=== PATIENT | female | born 1960 | race Caucasian/White ===

== ENCOUNTER → 2024-03-27 03:55 | Outpatient (CLI) | payer MEDICARE, SELFPAY ==
--- NOTE | 2024-03-27 08:00 | DI.CTLCSR_ITS ---
Exam(s) CT CHEST LUNG CANCER SCREEN EXAM: CT CHEST LUNG CANCER SCREEN CLINICAL HISTORY: Screening for lung cancer,FORMER SMOKER, Z87.891 TECHNIQUE: Imaging Protocol: Axial computed tomography images with coronal and sagittal reformatted images were created and reviewed. Low dose screening protocol. COMPARISON: No exams were available for comparison FINDINGS: Tracheobronchial tree: No bronchiectasis or mucus plugging. Mediastinum and Deyanira: No dominant adenopathy or fluid collection. Pulmonary parenchyma: No consolidation or dominant measurable mass. Minimal emphysematous changes. Lung Nodules: None. Pleura: No effusion. No pneumothorax. Heart: The heart is not dilated. No coronary artery calcifications are seen. Aorta: Thoracic aorta non-dilated. Upper abdomen: Unremarkable. Bones: Unremarkable for age. Soft Tissues: Bilateral breast implants. Surgical clips in both axilla IMPRESSION: No suspicious pulmonary nodules. Lung RADS Cat 1 - Negative: No nodules and definitely benign nodules Lung-RADS 1.0 CATEGORIES: Category 0 - Prior chest CT exam(s) being located for comparison. Category 1 - Annual screening in 12 months. No nodules or definitely benign nodules. Category 2 - Annual screening in 12 months. Benign appearance. Nodules with low likelihood of becomin g active cancer. Category 3 - 6-month follow-up. Probably benign. Short-term follow-up suggested. Nodules with low lik elihood of becoming active cancer. Category 4A - 3-month follow-up and CT/PET if >8 mm in size. Suspicious finding. Findings which requi re additional testing. Category 4B - Findings which require additional testing and tissue sampling. Category 4X - Category 3 or 4 nodules with additional features or imaging findings that increases the suspicion of malignancy. Modifier S- Potentially clinically significant findings (non lung cancer) RADIATION DOSE DELIVERED: 72.66mGy.cm Total DLP DATA REPOSITORY: All CT scans at this facility are submitted to the National Radiology Data Registry (NRDR) Dose Index Registry (DIR) with the [employer] (ACR). RADIATION OPTIMIZATION: All CT scans at this facility use at least one of these dose optimization te chniques: automated exposure control; mA and/or kV adjustment per patient size (includes targeted exa ms where dose is matched to clinical indication); or iterative reconstruction.
== END ==
PROVIDERS: PCP Student in an Organized Health Care Education/Training Program; Visit Provider Student in an Organized Health Care Education/Training Program
DX: Z12.2 Encounter for screening for malignant neoplasm of respiratory organs (principal); Z87.891 Personal history of nicotine dependence
CPT/HCPCS: 71271

== ENCOUNTER → 2024-06-28 14:52 | Outpatient (BNVA) | payer MEDICARE, SELFPAY | PROVIDERS: PCP Student in an Organized Health Care Education/Training Program; Referring Provider Student in an Organized Health Care Education/Training Program; Visit Provider Physical Therapy Assistant | DX: Z12.11 Encounter for screening for malignant neoplasm of colon (principal); Z86.010 Personal history of colon polyps ==

== ENCOUNTER 2024-06-28 16:11 | Outpatient (CLI) | payer MEDICARE, SELFPAY ==
[2024-06-28 16:01] LABS: HCT 37.6 % (36.0-46.0); HGB 12.8 g/dL (11.2-15.7); MCH 28.3 pg (27.0-33.0); MCV 83 fL (80-95); Platelet Count 318 10^3/uL (130-400); RBC 4.52 10^6/uL (3.93-5.22); RDW-SD 39.4 fL; WBC 7.56 10^3/uL (4.4-10.8)
--- OUTSIDE RECORDS SUMMARY | 2024-06-28 16:16 | XMS_ITS | Clinical Summary ---
[place] [address] Care Team Providers Care Parts Finisher Name Role Phone Nikki Greco DO Primary Care Provider [phone]- [phone] Encounters Date Type Department Care Team Description 04/17/2024 Transcribe Orders eD Incoming Referrals [phone] Nikki Greco DO Acquired absence of bilateral breasts and nipples; Malignant neoplasm of female breast, unspecified estrogen receptor status, unspecified laterality, unspecified site of breast 04/05/2024 Telephone [place]ology [place] [id number] Arabella Hardwick 04/02/2024 Transcribe Orders eD Incoming Referrals [phone] Nikki Greco DO 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 from Last 3 Months Social History Tobacco Use Types Packs/Day Years Used Date Smoking Tobacco: Never Assessed Sex and Gender Information Value Date Recorded Sex Assigned at Not on file Gender Identity Not on file Sexual Orientation Not on file Plan of Treatment Health Maintenance Due Date Last Done Comments CT Colonography 1959 Colonoscopy 1960 Colorectal Cancer Screening 1960 FIT DNA 1959 FIT 1960 Sigmoidoscopy (10 year) with FIT yearly 1959 Sigmoidoscopy 1960 HIV screen 1977 Hepatitis C Screening 1977 Tdap adult 1978 Tetanus vaccine 1978 HPV test 1989 PAP Smear 1989 Breast Cancer Share Decision Needed 1999 Breast Cancer screening 1999 Zoster vaccine (1 of 2) 2009 Advance Directive 2014 Covid-19 Vaccine ( season) 2023 Bone Density Scan 2024 Pneumoccocal Vaccine: 65+ (1 of 1 - PCV) 2024 Influenza (Flu) vaccine (1 o f 1 - Influenza standard series) 07/08/2024 Care Teams Parts Finisher Relationship Specialty Start Date End Date Nikki Greco DO [address] [place] [address] PCP - General Family Medicine 04/02/24
--- OUTSIDE RECORDS SUMMARY | 2024-06-28 16:16 | XMS_ITS | Encounter Summary ---
[place] [address] Care Team Providers Care Rotary Lithographic Press Operator Name Role Phone Nikki Greco DO Primary Care Provider [phone]- [phone] Reason for Referral * Consultation (Priority 1) - Authorized Specialty Diagnoses / Procedures Referred By Danielle tierney Referred To Contact Hematology and Oncology Diagnoses Acquired absence of bilateral breasts and nipples Malignant neoplasm of female breast, unspecified estrogen receptor status, unspecified laterality, unspecified site of breast Silvina Silverman DO [address] [facility] [place] [address] [facility] [address] [place] [address] Referral ID Status Reason Start Date Expiration Date Visits Requested Visits Authorized [id number] Authorized Consult, Test & Treat PCP Updated and/or Approved 04/05/2024 04/05/2025 6 6 Encounter Details Date Type Department Care Team (Latest Contact Info) Description 04/17/2024 Transcribe Orders eDH Incoming Referrals [phone] Nikki Greco DO [address] [place], [place] [id number] Acquired absence of bilateral breasts and nipples; Malignant neoplasm of female breast, unspecified estrogen receptor status, unspecified laterality, unspecified site of breast Social History Tobacco Use Types Packs/Day Years Used Date Smoking Tobacco: Never Assessed Sex and Gender Information Value Date Recorded Sex Assigned at Not on file Gender Identity Not on file Sexual Orientation Not on file documented as of this encounter Plan of Treatment Scheduled Referrals Name Type Priority Associated Diagnoses Orde r Schedule Referral to Genetics Outpatient Referral Routine Acquired absence of bilateral breasts and nipples Malignant neoplasm of female breast, unspecified estrogen receptor status, unspecified laterality, unspecified site of breast Ordered: 04/17/2024 documented as of this encounter Visit Diagnoses Diagnosis Acquired absence of bilateral breasts and nipples Acquired absence of breast and nipple Malignant neoplasm of female breast, unspecified estrogen receptor status, unspecified laterality, unspecified site of breast documented in this encounter Care Teams Rotary Lithographic Press Operator Relationship Specialty Start Date End Date Nikki Greco DO [address] [facility] [address] PCP - General Family Medicine 04/02/24 documented as of this encounter
--- OUTSIDE RECORDS SUMMARY | 2024-06-28 16:16 | XMS_ITS | Encounter Summary ---
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 Nikki Greco DO [address] [place] [address] [facility] [address] [place] [address] Referral ID Status Reason Start Date Expiration Date Visits Requested Visits Authorized [id number] Authorized Consult, Test & Treat PCP Updated and/or Approved 03/20/2024 03/20/2025 6 6 Encounter Details Date Type Department Care Team (Latest Contact Info) Description 04/02/2024 Transcribe Orders eDH Incoming Referrals [phone] Nikki Greco DO [address] [place], [place] [id number] 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 Social History Tobacco Use Types Packs/Day Years Used Date Smoking Tobacco: Never Assessed Sex and Gender Information Value Date Recorded Sex Assigned at Not on file Gender Identity Not on file Sexual Orientation Not on file documented as of this encounter Plan of Treatment Scheduled Referrals Name Type Priority Associated Diagnoses Order Schedule Referral to Hematology and Oncology Outpatient Referral Routine 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
--- OUTSIDE RECORDS SUMMARY | 2024-06-28 16:16 | XMS_ITS | Encounter Summary ---
Author Organization [facility] [place] [address] Care Team Providers Care Loading And Unloading Supervisor Name Role Phone Nikki Greco DO Primary Care Provider [phone]- [phone] Encounter Details Date Type Department Care Team (Late st Contact Info) Description 04/05/2024 Telephone Hematology [place] [phone] Arabella Hardwick Social History Tobacco Use Types Packs/Day Years Used Date Smoking Tobacco: Never Assessed Sex and Gender Information Value Date Recorded Sex Assigned at Not on file Gender Identity Not on file Sexual Orientation Not on file documented as of this encounter Miscellaneous Notes * Telephone Encounter - Arabella Hardwick - 04/05/2024 10:17 AM EDT Vangie Craven 1960 Please fax all office notes and reports pertaining to Breast Cancer to the Comprehensive Breast Program at [facility]. Your patient is going to be treated here for Breast Cancer. If questions, please call us at [phone]. Please Include: -Breast Imaging reports -Chemo flow sheets -Office visit notes -Operative notes -Pathology reports -Radiation completion summary Thank you Breast Cancer Team documented in this encounter Plan of Treatment Not on file documented as of this encounter Visit Diagnoses Not on filedocumented in this encounter Care Teams Loading And Unloading Supervisor Relationship Specialty Start Date End Date Nikki Greco DO [address] [place] [address] PCP - General Family Medicine 04/02/24 documented as of this encounter
[2024-06-28 17:08] LABS: ALT 36 U/L (14-59); AST 23 U/L (15-37); Albumin 3.8 g/dL (3.4-5.0); Alkaline Phosphatase 94 U/L (46-116); Anion Gap 8.7 mmol/L (3-11); BUN 18 mg/dL (7-18); Bilirubin, Total 0.52 mg/dL (0.2-1.0); CO2 27.3 mmol/L (21.0-32.0); CREATININE 0.8 mg/dL (0.55-1.02); Calculated LDL 122 mg/dL (<100); Chloride 104 mmol/L (98-107); Cholesterol 264 mg/dL (<200); Estimated GFR 81.72 (mL/min/1.73m2); Glucose 103 mg/dL (74-106); HDL Cholesterol 109 mg/dL (40-60); Potassium 3.8 mmol/L (3.5-5.1); Sodium 140 mmol/L (136-145); TSH (W/Ref FT4) 1.76 uIU/mL (0.36-3.74); Total Protein 6.9 g/dL (6.4-8.2); Triglyceride 166 mg/dL (<150); Vitamin D 25 Total 50.8 ng/mL (30-100)
== END 2024-06-28 16:12 | disposition home or self-care (01) ==
LOC: LBO 16:14
PROVIDERS: PCP Student in an Organized Health Care Education/Training Program; Visit Provider Student in an Organized Health Care Education/Training Program
DX: Z87.891 Personal history of nicotine dependence (principal); Z90.13 Acquired absence of bilateral breasts and nipples; Z98.890 Other specified postprocedural states; Z12.39 Encounter for other screening for malignant neoplasm of breast; Z00.00 Encounter for general adult medical examination without abnormal findings; Z13.220 Encounter for screening for lipoid disorders; K90.9 Intestinal malabsorption, unspecified
CPT/HCPCS: 36415; 80053; 80061; 82306; 85027; 84443

== ENCOUNTER 2024-07-13 09:57 | Day surgery (SDC) | payer MEDICARE, SELFPAY ==
--- NOTE | 2024-07-12 20:10 | W.PM.DSUDISC ---
Date of service: 07/13/24 Time of Service: 13:53 Discharge Plan Disposition Patient Disposition: Home Condition: Good Discharge Details Reason For Visit: screening colonoscopy Attending Provider: Ramses Chen Primary Care Provider: Nikki Greco Home Meds and New Rx's Prescriptions: Continued alprazolam 0.5 mg tablet 0.5 mg PO BID citalopram 20 mg tablet 20 mg PO DAILY Qty: 90 3RF multivitamin Tablet 1 tab PO DAILY Discontinued bisacodyl [Dulcolax (bisacodyl)] 5 mg tablet,delayed release (DR/EC) 5 mg PO ONCE Qty: 4 0RF Rx Instructions: Take per colonoscopy instructions provided by ordering providers office polyethylene glycol 3350 17 gram/dose powder 17 g PO ONCE Qty: 238 0RF Rx Instructions: Take per colonoscopy instructions provided by ordering providers office Discharge Instructions Instructions: Colon polyps Additional Instructions: Vangie, we were able to complete your colonoscopy today without any difficulty. I did find to remove 3 polyps. All were quite small, and none of them appear worrisome to the naked eye. These will all be sent off for testing, and once I know the nature of these polyps, the office will be in touch with recommendations for the timing of your next colonoscopy. If you have any questions in the meantime, please do not hesitate to call or ask at any point 1. If tolerated, consume a soft, low fiber diet for 1-2 days. [address] not drive, drink alcohol, operate machinery, make critical decisions, or do activities that require coordination or balance for 24 hours. 3. Because air was put into your colon during the procedure, expelling air from your rectum (passing gas or farting) is normal. 4. You may not have a bowel movement for 1-3 days because of the colonoscopy prep. This is normal. 5. Go directly to the emergency room if you notice any of the following: Develop chills (warm to touch), or if you have a thermometer and your temperature is above 101 Difficulty breathing or difficultly swallowing Persistent vomiting Severe abdominal pain, other than gas cramps Severe chest pain Black, tarry stools Any bleeding ? exceeding one tablespoon 6. Call your physician if the site where your intravenous was started becomes red, swollen, painful, and warm to touch. 7. Your physician has reviewed your pre-procedure medications. Please continue to take those medications as previously ordered. You will be given specific information/education regarding any changes to your medications before leaving. Stand Alone Forms: Anesthesia Discharge Inst., Caroline Alcocer (DSU) Activity:: Activity as Tolerated Diet:: As Tolerated Discharge Orders Discharge Orders: Discharge Order (Routine); Ordered 07/12/24 Ordered By: Ramses Chen DS: Diagnosis Discharge Diagnosis (1) Encounter for screening colonoscopy: Status: Acute Asessment and Plan: Follow-up on polypectomy results
--- NOTE | 2024-07-12 20:12 | W.COLOREPORT ---
Date of service: 07/13/24 Time of Service: 13:54 Colonoscopy Report Date of procedure: 07/13/24 Pre-op diagnosis general: screening colonscopy Post-op diagnosis procedure note: other (Colon polyps) Procedure: colonoscopy with polypectomy Surgeon: Ramses Chen Anesthesia Type: General:No Airway Estimated blood loss (mL): 5 Pathology: other (0.25 cm flat polyp at 35 cm, 0.25 cm flat polyp at 25 cm, 0.25 cm flat polyp at 15 cm) Complications: None Disposition: same day Indications: Vangie is a 64 year old woman with a history of colon polyps who needs her next screening colonoscopy Prep: Miralax/Dulcolax Procedure Start Time: 12:50 Procedure End Time: 13:13 Retraction Time: 16 Findings: 0.25 cm flat polyp at 35 cm, 0.25 cm flat polyp at 25 cm, 0.25 cm flat polyp at 15 cm Procedure Description: After the induction of monitored anesthetic care, and with the patient in left lateral decubitus position, I began by performing an external anorectal exam.? Perineum and skin were normal, as was the anal verge.? There was no evidence of external hemorrhoids.? Next, I performed a digital rectal exam.? I did not appreciate any abnormal findings.? Next, I advanced a colonoscope into the rectal vault.? I performed retroflexion.? This appeared normal.? Using insufflation, I then advanced the colonoscope beyond the rectal folds and into the sigmoid colon before advancing towards the cecum.? The quality of the prep was excellent.? The scope was noted to be in the cecum by identification of the ileocecal valve and appendiceal orifice.? I then began withdrawing the colonoscope using repeated irrigation as necessary for full evaluation of the colonic mucosa. Around 35 cm from the anal verge I identified a 0.25 cm polyp. ?It appeared flat in character. ?I was able to remove this with a cold forcep polypectomy. ?I examined the site, and there was minimal bleeding. ?Once this was completed, I continued to withdraw the scope and examine the remainder of the colonic mucosa. Similarly, I found flat polyps at 25 cm, and 15 cm. Each of these was less than 0.25 cm. I removed both of these with cold forceps without any difficulty. Once the scope was withdrawn to the level of the rectum, great care was taken to examine portions of the rectal folds.? Finally, the scope was withdrawn and the patient was brought to the same-day surgery recovery unit as the anesthetic wore off. ?The findings and instructions were shared with the patient prior to discharge. Washington Bowel Prep Washington Bowel Prep Right Colon: 2 Left Colon: 3 Transverse Colon: 3 Total Score: 8
[2024-07-13 10:10] VITALS: BP 107/68; PULSE 65; RESP 16; TEMP 36.4; O2SAT 99
[2024-07-13] MEDS: Lactated Ringers 1,000 ML 80 ML IV (10:35)
--- NOTE | 2024-07-13 12:20 | W.ANESPRE ---
General Info Date of Service Date Performed: 07/13/24 Height: 5 ft 5 in Weight: 66.4 kg Body Mass Index (BMI): 24.3 Surgical Procedure: Operation Date: 07/13/24 11:35 Proposed Procedure Side Surgeon p Colonoscopy Ramses Chen MD Actual Procedure Side Surgeon p Colonoscopy Ramses Chen MD Pre-Op Diagnosis Post-Op Diagnosis HX OF COLON POLYPS Meds Allergies and Home Medications Allergies Allergy/AdvReac Type Severity Reaction Status Date / Time azithromycin (From Zithromax) Allergy Severe Hives Verified 07/13/24 10:07 nitrofurantoin Allergy Severe Hives Verified 07/13/24 10:07 erythromycin Allergy Unknown Other (See Uncoded 07/13/24 10:07 Comment) Home Medication ?Medication ?Instructions ?Recorded alprazolam 0.5 mg tablet 0.5 mg PO BID 02/22/24 citalopram 20 mg tablet 20 mg PO DAILY #90 tabs 05/09/24 multivitamin 1 tab PO DAILY 07/11/24 Current Visit Medications: Current Medications Generic Name Dose Route Start Last Admin Trade Name Freq PRN Reason Stop Dose Admin Ringer's Solution 1,000 mls @ 80 mls/hr 07/13/24 06:00 07/13/24 10:35 IV 08/11/24 23:59 80 mls/hr INFUSION MYCHAL Administration IV Miscellaneous Supplies 1 each 07/13/24 06:00 Iv Access IV 08/11/24 23:59 DIRECTED MYCHAL Sodium Chloride 0 ml 07/13/24 06:00 Normal Saline Flush 10 Ml Syr IV 08/11/24 23:59 PRN PRN Sodium Chloride 0 ml 07/13/24 06:00 Normal Saline 10 Ml Vial IJ 08/11/24 23:59 DIRECTED PRN Sterile Water 0 ml 07/13/24 06:00 Water,Injection,Sterile 10 Ml Vial IJ 08/11/24 23:59 DIRECTED PRN PFSH Active Problems Active Problems: Problem Status Onset Code Encounter for screening colonoscopy Acute Z12.11 Insomnia Acute G47.00 Social anxiety disorder Acute F40.10 Well woman exam with routine gynecological exam Acute Z01.419 Osteoporosis Chronic M81.0 Anxiety disorder, unspecified Acute F41.9 Pure hypercholesterolemia Acute E78.00 Medical History Medical History Malignant neoplasm of breast Surgical History Surgical History Hx of lumpectomy Return Breast Cancer 2022 [facility] center Dr. Araujo. History of bilateral mastectomy breast cancer 2004 [facility] medical Dr. Dao Tobacco Smoking/Tobacco Use Status: Former Tobacco Use Smokeless tobacco user: other Alcohol Alcohol Intake: former Year quit: 2014 Substance Use Substance use: Never Substance use type: does not use Prental History History 2 Para 1 Hx # Term Pregnancies 1 Multiple births Hx # Pregnancies Ectopic pregnancies AB induced Hx Number of Living Children 1 AB spontaneous Vital Signs and Lab Results Vital Signs Most Recent Vital Signs in EMR: Most Recent Vital Signs Temp Pulse Resp BP Pulse Ox 36.4 C L 65 16 107/68 99 07/13/24 10:10 07/13/24 10:10 07/13/24 10:10 07/13/24 10:10 07/13/24 10:10 Lab Results Blood Type / Crossmatch: No Data to Display Complete Blood Count: White Blood Count 7.56 10^3/uL (4.4-10.8) 06/28/24 15:58 Red Blood Count 4.52 10^6/uL (3.93-5.22) 06/28/24 15:58 Hemoglobin 12.8 g/dL (11.2-15.7) 06/28/24 15:58 Hematocrit 37.6 % (36.0-46.0) 06/28/24 15:58 Platelet Count 318 10^3/uL (130-400) 06/28/24 15:58 Complete Metabolic Panel: Sodium 140 mmol/L (136-145) 06/28/24 15:58 Potassium 3.8 mmol/L (3.5-5.1) 06/28/24 15:58 Chloride 104 mmol/L (98-107) 06/28/24 15:58 Carbon Dioxide 27.3 mmol/L (21.0-32.0) 06/28/24 15:58 BUN 18 mg/dL (7-18) 06/28/24 15:58 Creatinine 0.8 mg/dL (0.55-1.02) 06/28/24 15:58 Est GFR (CKD-EPI 2020) 81.72 (mL/min/1.73m2) 06/28/24 15:58 Calcium 9.0 mg/dL (8.5-10.1) 06/28/24 15:58 Albumin 3.8 g/dL (3.4-5.0) 06/28/24 15:58 Glucose 103 mg/dL (74-106) 06/28/24 15:58 Liver Function Panel: Alanine Aminotransferase (ALT/SGPT) 36 U/L (14-59) 06/28/24 15:58 Aspartate Amino Transf (AST/SGOT) 23 U/L (15-37) 06/28/24 15:58 Coagulation Panel: No Data to Display Cardiac Panel: No Data to Display Arterial Blood Gas: No Data to Display Venous Blood Gas: No Data to Display Pancreas Panel: No Data to Display Thyroid Panel: Thyroid Stimulating Hormone (TSH) 1.76 uIU/mL (0.36-3.74) 06/28/24 15:58 Infectious Disease: No Data to Display Blood Cultures: No Data to Display Toxicology Panel: No Data to Display Anesthesia Assessment and Plan Anesthesia History Personal History: No History of Anesthesia Complications Family History: No Family History of Anesthesia Complications Exercise Tolerance Exercise Tolerance: Metabolic Equivalents>4 Pertinent Negatives Pertinent Negatives: No Symptoms of GERD Cardiac & Pulmonary Exam Cardiac Exam: Normal S1/S2 Heart Sounds Pulmonary Exam: Clear Bilateral Breath Sounds Implantable Cardiac Device Does patient have a Pacemaker or an ICD?: No Airway Exam Known Difficult Airway: No Mallampati Class: 2 Mouth Opening: Normal (> 3cm) Thyromental Distance: Greater than 3 cm Neck Range of Motion: Full ROM Neck Circumference: Normal Teeth Condition: Normal Dentition ASA Classification ASA Score: ASA 2 Emergency Case?: No NPO Status NPO Status: NPO Clears >2 hours, Solids >8 hours Anesthesia Plan Resuscitation Status: Full Code Anesthesia Technique: General Anesthesia Airway Planned: Natural Airway Monitors Used: Standard Monitors
[2024-07-13 12:21] VITALS: BMI 24.3
--- NOTE | 2024-07-13 13:06 | BOWEL_PTH ---
PATIENT: Vangie Craven LOC: [facility] U#:[id number] AGE/SX: 64/F ROOM: RE07/13/[address]: Ramses Chen MD : 1960 BED: DIS: 07/13/2024 SPEC #: [id number] RECD: 07/13/24 17:36 STATUS: YEISON RE #: [id number] KALYAN: 07/13/24 13:[address]: Ramses Chen DEPT: Surgical Specimen RECD BY: Angela Faye ENTERED: 07/13/24 17:37 SP TYPE: Bowel OTHR DR: Nikki Greco DO Tissues: 1 - BIOPSY BOWEL 2 - BIOPSY BOWEL 3 - BIOPSY BOWEL Procedures: GROSS AND MICRO LEVEL 4 Comments: [id number]
[2024-07-13 13:16] VITALS: BP 97/53; PULSE 88; RESP 18; TEMP 36.6; O2SAT 95
--- NOTE | 2024-07-13 13:28 | W.ANESPOSTOP ---
Postoperative Evaluation Date, Time and Location Date Performed: 07/13/24 Time Performed: 13:28 Patient Location: Day Surgery Unit Vital Signs Most Recent Imported Vital Signs: Most Recent Vital Signs Temp Pulse Resp BP Pulse Ox 36.6 C 88 18 97/53 L 95 07/13/24 13:16 07/13/24 13:16 07/13/24 13:16 07/13/24 13:16 07/13/24 13:16 Pain Score Most Recent Pain Score: Most Recent Pain Score Pain Level 0 07/13/24 13:16 Assessment Mental Status: Awake (Alert & Oriented to Patient Baseline) Airway and Respiratory Function: Patent airway with normal (patient baseline) respiratory exam Cardiovascular Function: Hemodynamically Stable Hydration Status: Adequately Hydrated Nausea & Vomiting: No Nausea or Vomiting Pain: Pt. Denies Any Pain Peripheral Nerve Block: Patient did not receive a nerve block
[2024-07-13 13:45] VITALS: BP 123/75; PULSE 72; RESP 18; TEMP 36.3; O2SAT 99
== END 2024-07-13 14:50 | disposition home or self-care (01) ==
LOC: SUR 09:57
PROVIDERS: PCP Student in an Organized Health Care Education/Training Program; Visit Provider Surgery
PROC: 0DJD8ZZ Inspection of Lower Intestinal Tract, Via Natural or Artificial Opening Endoscopic (ICD-10-PCS; CPT 45378; principal; 2024-07-13 11:30)
DX: Z12.11 Encounter for screening for malignant neoplasm of colon (principal); K63.5 Polyp of colon
CPT/HCPCS: 45380; 88305; J2001; J2704

== ENCOUNTER 2025-03-22 00:15 | Outpatient (CLI) | payer MEDICARE, SELFPAY ==
--- NOTE | 2025-03-22 08:30 | DI.DEXA_ITS ---
Exam(s) XR DEXA BONE DENSITY W/WO JUAN EXAM: XR DEXA BONE DENSITY W/WO JUAN CLINICAL HISTORY: osteoporosis,m81.0 TECHNIQUE: COMPARISON: No exams were available for comparison FINDINGS: Lateral Spine Image: Unremarkable. No compression deformities identified. Left hip: Total T-Score: -2.0 Total Z-Score: -0.8 T- and Z-scores: Overall findings are consistent with osteopenia. There is, however, osteoporosis in the femoral neck with a T-score of -2.5. Lumbar Spine: Total T-Score: -2.6 Total Z-Score: -0.7 T- and Z-scores: Findings are consistent with osteoporosis. IMPRESSION: Osteoporosis in the lumbar spine in the left femoral neck.
== END 2025-03-22 00:35 ==
LOC: DI 00:16
PROVIDERS: PCP Nurse Practitioner Family; Visit Provider Nurse Practitioner Family
DX: M81.0 Age-related osteoporosis without current pathological fracture (principal)
CPT/HCPCS: 77080

== ENCOUNTER 2025-07-23 01:33 | Outpatient (CLI) | payer MEDICARE, SELFPAY ==
[2025-07-23 14:41] LABS: INR 1.0 (0.9-1.1); PTT Activated 24.6 sec (20.6-30.2); Prothrombin Time 10.2 sec (9.1-11.1)
== END 2025-07-23 01:34 | disposition home or self-care (01) ==
LOC: LBO 07-24 01:34
PROVIDERS: PCP Nurse Practitioner Family; Visit Provider Family Medicine
DX: R58 Hemorrhage, not elsewhere classified (principal); S89.90XA Unspecified injury of unspecified lower leg, initial encounter; R23.3 Spontaneous ecchymoses
CPT/HCPCS: 36415; 73590; 85610; 85730; 93971

== ENCOUNTER 2025-07-23 03:30 | Outpatient (CLI) | payer MEDICARE, SELFPAY ==
--- NOTE | 2025-07-23 06:15 | DI.US_ITS ---
Exam(s) US LOWER EXTREMITY VENOUS RT EXAM: US LOWER EXTREMITY VENOUS RT CLINICAL HISTORY: painful, nonresolving bruise on sims,swelling, hematoma,r60.9 TECHNIQUE: Right lower extremity venous ultrasound performed using grayscale, color-flow, and spectral Doppler analysis. COMPARISON: No exams were available for comparison FINDINGS: The right common femoral, femoral and popliteal veins demonstrate normal compressibility, augmentation, and color Doppler. The posterior tibial and peroneal veins are patent. The saphenofemoral junction is unremarkable. There is no evidence of a Chavarria cyst. The soft tissues are unremarkable. IMPRESSION: No evidence of a right lower extremity DVT. DATA REPOSITORY:
--- NOTE | 2025-07-23 06:15 | DI.RAD_ITS ---
Exam(s) XR TIB/FIB RT EXAM: XR TIB/FIB RT CLINICAL HISTORY: Painful, nonresolving bruise on sims,swelling,hematoma,T14.8xxa. TECHNIQUE: 2D digital imaging was performed. COMPARISON: No exams were available for comparison FINDINGS: Two views No evidence fracture or dislocation. Bone density normal. No osseous lesions. No radiopaque foreign bodies. No gas in the soft tissues. IMPRESSION: No significant osseous findings in the tibia and fibula. DATA REPOSITORY: RADIATION DOSE DELIVERED:
== END 2025-07-23 03:50 ==
LOC: DI 03:30
PROVIDERS: PCP Nurse Practitioner Family; Visit Provider Family Medicine
DX: S89.91XA Unspecified injury of right lower leg, initial encounter (principal); R60.9 Edema, unspecified; X58.XXXA Exposure to other specified factors, initial encounter
CPT/HCPCS: 73590; 93971

== ENCOUNTER → 2025-08-26 14:22 | Outpatient (BNVA) | payer MEDICARE, SELFPAY | PROVIDERS: PCP Nurse Practitioner Family; Referring Provider Nurse Practitioner Family; Visit Provider Physician Assistant | DX: S80.11XD Contusion of right lower leg, subsequent encounter (principal); X58.XXXD Exposure to other specified factors, subsequent encounter | CPT/HCPCS: 99203 ==